=== PATIENT | male | born 1955 | race Caucasian/White ===

== ENCOUNTER 2018-08-28 12:02 | Day surgery (SDC) | payer MEDICAID ==
[~2018-08-28] VITALS: Ht 152.4 cm; Wt 68.5 kg
[2018-08-28] MEDS ORDERED: PROPOFOL 200MG/20ML VIAL IV ONE (13:13)
[2018-08-28] MEDS ORDERED: LIDOCAINE HCL/PF 1% 10 MG/ML 5ML VIAL ONE (13:14)
[2018-08-28] MEDS ORDERED: VECURONIUM BROMIDE 10 MG/VIAL IV ONE (13:14)
[2018-08-28] MEDS ORDERED: CEFAZOLIN SODIUM 1000MG/VIAL ONE (13:14)
[2018-08-28] MEDS ORDERED: FENTANYL CITRATE/PF 50MCG/ML 2ML VIAL ONE (13:20)
[2018-08-28] MEDS ORDERED: OXYB5TAB11 PO (13:45)
[2018-08-28] MEDS ORDERED: AMLO10TA80 PO (13:45)
[2018-08-28] MEDS ORDERED: BACITRACIN 50,000 UNITS/VIAL ONE (14:53)
[2018-08-28] MEDS ORDERED: NORMAL SALINE 0.9% 10 ML SYR ONE (14:53)
[2018-08-28] MEDS ORDERED: SKIN ADHESIVE 0.7 GM EA TOP ONE (14:53)
[2018-08-28] MEDS ORDERED: BUPIVACAINE HCL/PF 0.5% (5MG/ML) 10ML ONE (14:53)
[2018-08-28] MEDS ORDERED: LIDOCAINE HCL 1% 20ML VIAL (Pyxis) INJ ONE (14:53)
[2018-08-28] MEDS ORDERED: MIDAZOLAM HCL 2 MG/2 ML VIAL ONE (15:08)
[2018-08-28] MEDS ORDERED: SUCCINYLCHOLINE CHLORIDE 200MG/10ML IV ONE (15:10)
[2018-08-28] MEDS ORDERED: GLYCOPYRROLATE 0.2 MG/ML 2ML VIAL ONE ×2 (16:35→16:45)
[2018-08-28] MEDS ORDERED: NEOSTIGMINE METHYLSULFATE 1MG/ML 10 ML VIAL ONE (16:35)
[2018-08-28] MEDS ORDERED: LABETALOL HCL 20MG/4ML CARPUJECT IV PRN (17:00)
[2018-08-28] MEDS ORDERED: HYDROMORPHONE HCL/PF 2MG/ML CPJ IV PRN (17:00)
[2018-08-28] MEDS ORDERED: ONDANSETRON HCL 4MG/2ML INJ IV PRN (17:00)
[2018-08-28] MEDS ORDERED: MEPERIDINE HCL/PF 25MG/ML CPJ IV PRN (17:00)
== END 2018-08-28 19:05 | disposition home or self-care (01) ==
LOC: OR 12:02 → EDSEX 13:30 → OR 19:05
PROVIDERS: ATTEND Specialist
DX: K40.90 Unilateral inguinal hernia, without obstruction or gangrene, not specified as recurrent (principal); I10 Essential (primary) hypertension; Z98.890 Other specified postprocedural states; Z79.899 Other long term (current) drug therapy; Z79.01 Long term (current) use of anticoagulants
CPT/HCPCS: 49505; A4216; C1781; J0330; J0690; J2250; J2710; J3010; J3490; J2704